=== PATIENT | female | born 1950 | race Caucasian/White ===

== ENCOUNTER 2017-12-15 05:15 | Emergency (ER) | payer MEDICARE, OTHER ==
[~2017-12-15] VITALS: Ht 160 cm; Wt 64.0 kg
[2017-12-15] MEDS ORDERED: LEVO75TA5 PO (05:28)
[2017-12-15] MEDS ORDERED: PRIM250T PO (05:28)
[2017-12-15] MEDS ORDERED: AMLO10TA2 PO (05:28)
[2017-12-15] MEDS ORDERED: HYDR12.58 PO (05:28)
[2017-12-15] MEDS ORDERED: METHOCARBAMOL 750 MG TABLET PO ONE (05:30)
[2017-12-15] MEDS ORDERED: KETOROLAC 30 MG/1 ML IM ONE (05:30)
[2017-12-15] MEDS ORDERED: KETOROLAC 30 MG/1 ML ONE (05:38)
[2017-12-15] MEDS ORDERED: METHOCARBAMOL 750 MG TABLET ONE (05:38)
[2017-12-15 05:50] LABS: BASOPHILS # (AUTO) 0.07 x10^3/uL (0-0.1); BASOPHILS % (AUTO) 1 % (0-1); EOSINOPHILS # (AUTO) 0.12 x10^3/uL (0-0.4); EOSINOPHILS % (AUTO) 2 % (1-7); LYMPHOCYTES # (AUTO) 0.62 x10^3/uL (1-3.4); LYMPHOCYTES % (AUTO) 9 % (22-44); MD NO; MEAN CORPUSCULAR HEMOGLOBIN 32.8 pg (27.0-34.8); MEAN CORPUSCULAR HGB CONC 34.1 g/dL (32.4-35.8); MEAN PLATELET VOLUME 7.3 fL (7.4-10.4); MONOCYTES # (AUTO) 0.47 x10^3/uL (0.2-0.8); MONOCYTES % (AUTO) 6 % (2-9); NEUTROPHILS # (AUTO) 5.98 x10^3/uL (1.8-6.8); NEUTROPHILS % (AUTO) 82 % (42-75); PLATELET COUNT 287 x10^3/uL (130-400); RED BLOOD COUNT 4.28 x10^6/uL (3.82-5.3); RED CELL DISTRIBUTION WIDTH 13.7 % (9.6-15.2)
[2017-12-15 06:03] LABS: ALANINE AMINOTRANSFERASE 33 U/L (12-78); ALBUMIN 3.5 g/dL (3.4-5.0); ANION GAP 8 mmol/L (5-15); CALCIUM 8.3 mg/dL (8.5-10.1); CHLORIDE 103 mmol/L (98-107)
[2017-12-15 06:06] LABS: INTERNATIONAL NORMALIZED RATIO 1.02 (0.93-1.1); PROTHROMBIN TIME 10.6 Seconds (9.6-11.5)
[2017-12-15 06:07] LABS: ALKALINE PHOSPHATASE 69 U/L (45-117); BILIRUBIN,TOTAL 0.2 mg/dL (0.2-1.0); TOTAL PROTEIN 7.4 g/dL (6.4-8.2); TROPONIN I < 0.015 ng/mL (0.000-0.045)
[2017-12-15 06:13] LABS: THYROID STIMULATING HORMONE 0.455 mIU/L (0.358-3.740)
[2017-12-15 08:27] VITALS: BP 128/70
== END 2017-12-15 08:30 | disposition home or self-care (01) ==
LOC: ED 05:59
DX: M94.0 Chondrocostal junction syndrome [Tietze] (principal); R55 Syncope and collapse; I10 Essential (primary) hypertension; E03.9 Hypothyroidism, unspecified; R53.83 Other fatigue; G47.9 Sleep disorder, unspecified
CPT/HCPCS: 36415; 71046; 80053; 84443; 84484; 85025; 85610; 85730; 93005; 96372; 99285; J1885